=== PATIENT | female | born 1955 | race Hispanic/Latino ===

== ENCOUNTER → 2018-07-16 | Outpatient (CLI) | payer MEDICARE | END | disposition home or self-care (01) | LOC: RAH 10:55 | PROVIDERS: ATTEND Surgery | DX: N20.0 Calculus of kidney (principal) | CPT/HCPCS: 74018 ==

== ENCOUNTER → 2018-07-19 | Outpatient (CLI) | payer MEDICARE | END | disposition home or self-care (01) | LOC: RAH 09:44 | PROVIDERS: ATTEND Surgery | DX: N20.0 Calculus of kidney (principal) | CPT/HCPCS: 74018 ==

== ENCOUNTER 2018-08-12 06:34 | Day surgery (SDC) | payer MEDICARE ==
[~2018-08-12] VITALS: Ht 152.4 cm; Wt 79.0 kg
[2018-08-12] VITALS (17 sets, daily range): BP systolic 130–167; BP diastolic 57–78
[2018-08-12] MEDS ORDERED: LACTATED RINGERS 1000ML 1,000 ML IV ONE (07:24)
[2018-08-12] MEDS ORDERED: CEFAZOLIN SODIUM 1 GM VIAL ONE (07:24)
[2018-08-12] MEDS ORDERED: ASPI-1197 PO (07:27)
[2018-08-12] MEDS ORDERED: LISI10TA7 PO (07:28)
[2018-08-12] MEDS ORDERED: FOLI1TAB15 PO (07:29)
[2018-08-12] MEDS ORDERED: MULT-1250 PO (07:30)
[2018-08-12] MEDS ORDERED: PRAV40TA3 PO (07:31)
[2018-08-12] MEDS ORDERED: FERS325 PO (07:32)
[2018-08-12] MEDS ORDERED: CALC1TAB2 PO (07:33)
[2018-08-12] MEDS ORDERED: OMEP40CA37 PO (07:33)
[2018-08-12] MEDS ORDERED: CHOL500050 PO (07:36)
[2018-08-12] MEDS ORDERED: ALEN70SO3 PO (07:37)
[2018-08-12] MEDS ORDERED: CLINDAMYCIN 900 MG/D5% WATER 50 ML IV ONE (07:37)
[2018-08-12] MEDS ORDERED: NEOSTIGMINE 5MG/5ML SYR IV ONE (10:09)
[2018-08-12] MEDS ORDERED: LIDOCAINE PF 2% 5ML ABBOJECT ONE (10:09)
[2018-08-12] MEDS ORDERED: DEXAMETHASONE SOD PHOSPHATE 10MG/ML 1ML VIAL ONE (10:09)
[2018-08-12] MEDS ORDERED: MIDAZOLAM HCL 1 MG/ML 2ML VIAL ONE (10:09)
[2018-08-12] MEDS ORDERED: ONDANSETRON HCL 4 MG/2 ML VIAL ONE (10:09)
[2018-08-12] MEDS ORDERED: ROCURONIUM 10MG/1ML SYR 10 MG/ML ML ONE (10:09)
[2018-08-12] MEDS ORDERED: GLYCOPYRROLATE 1 MG/5 ML SYRINGE ONE (10:09)
[2018-08-12] MEDS ORDERED: PROPOFOL 10 MG/ML 20ML VIAL IV ONE (10:09)
[2018-08-12] MEDS ORDERED: FENTANYL CITRATE PF 50 MCG/1 ML 2ML VIAL ONE (10:10)
[2018-08-12] MEDS ORDERED: LIDOCAINE HCL MPF 1% 5ML VIAL ONE (10:11)
[2018-08-12] MEDS ORDERED: IOHEXOL-350 50ML VIAL IV ONE (10:54)
== END 2018-08-12 14:15 | disposition home or self-care (01) ==
LOC: DAH 06:34
PROVIDERS: ATTEND Surgery
DX: N13.2 Hydronephrosis with renal and ureteral calculous obstruction (principal); D64.9 Anemia, unspecified; K21.9 Gastro-esophageal reflux disease without esophagitis; M85.80 Other specified disorders of bone density and structure, unspecified site; I10 Essential (primary) hypertension; E78.5 Hyperlipidemia, unspecified
CPT/HCPCS: 36415; 50590; 52332; 84550; 87088; A4358; A4510; A4600; C1758; C1769; C2617; J1100; J2001; J2250; J2405; J2704; J2710; J3010; J3490 ×3; J7120; Q9967; J0690

== ENCOUNTER → 2018-09-17 | Outpatient (CLI) | payer MEDICARE ==
[~2018-09-17] MED LIST: ALEN70SO3 PO; ASPI-1197 PO; CALC1TAB2 PO; CHOL500050 PO; FERS325 PO; FOLI1TAB15 PO; LISI10TA7 PO; MULT-1250 PO; OMEP40CA37 PO; PRAV40TA3 PO
== END | disposition home or self-care (01) ==
LOC: RAH 10:03
PROVIDERS: ATTEND Surgery
DX: N20.0 Calculus of kidney (principal); M47.815 Spondylosis without myelopathy or radiculopathy, thoracolumbar region; Z90.49 Acquired absence of other specified parts of digestive tract
CPT/HCPCS: 74018